=== PATIENT | female | born 1960 | race Hispanic/Latino ===

== ENCOUNTER 2016-05-04 07:53 | Emergency (ER) | payer MEDICAID ==
[2016-05-04 08:03] VITALS: BP 140/77
[2016-05-04] MEDS ORDERED: NORCO 7.5/325 PO ONE (11:07)
--- NOTE | 2016-05-04 11:25 | Emergency Department Report ---
ED Back Pain/Injury HPI - General Chief Complaint: Back Pain/Injury Stated Complaint: BACK PAIN Time Seen by Provider: 05/04/16 10:02 Source: patient Limitations: No Limitations - History of Present Illness MD Complaint: back pain - Related Data Home Medications Medication Instructions Recorded Confirmed Last Taken Butalb/Acetamin/Caff 50-325-40 2 tab PO DAILY PRN 06/24/14 06/24/14 06/24/14 12: 30 [Fioricet] HYDROmorphone [Dilaudid] mg IM Q2W 06/24/14 06/24/14 06/21/14 Morphine mg IM 06/24/14 06/24/14 06/21/14 Haloperidol [Haldol] 5 mg PO DAILY 04/11/15 10/23/15 02/13/16 Benztropine [Cogentin] 2 mg PO BID 02/13/16 02/13/16 02/13/16 Previous Rx's Medication Instructions Recorded Last Taken Type HYDROcodone/ACETAMINOPHEN [[place] 1 each PO Q6HR #10 tablet 06/24/14 Unknown Rx 7.5-325 mg TAB] Amoxicillin/K Clav Tab [Augmentin 1 tab PO BID #14 tab 02/13/16 Unknown Rx 875 mg] Fluticasone [Flonase] 1 spray NS QDAY #1 bottle 02/13/16 Unknown Rx Loratadine 10 mg PO QDAY #30 tablet 02/13/16 Unknown Rx Naproxen [Naprosyn] 500 mg PO BID #30 tablet 02/13/16 Unknown Rx HYDROcodone/APAP 5-325 [[place] 1 each PO Q6HR PRN #12 tablet 03/02/16 Unknown Rx 5/325] traMADol [Ultram 50 MG tab] 50 mg PO Q6HR PRN #10 tablet 03/17/16 Unknown Rx Allergies Allergy/AdvReac Type Severity Reaction Status Date / Time hydroxyzine HCl AdvReac Rash Verified 05/04/16 07:57 [From Vistaril] hydroxyzine pamoate AdvReac Rash Verified 05/04/16 07:57 [From Vistaril] ibuprofen AdvReac Rash Verified 05/04/16 07:57 ketorolac tromethamine AdvReac Rash Verified 05/04/16 07:57 [From Toradol] ED Review of Systems ROS: Stated complaint: BACK PAIN Other details as noted in HPI ED Past Medical Hx - Past Medical History Hx Headaches / Migraines: Yes Hx Psychiatric Treatment: Yes ("HEAR VOICES D/T TUMOR REMOVED", Schizophrenia) Additional medical history: MS ?? "no symptoms --no medications". chronic pain. "nerve damage". SCIATICA - Surgical History Additional Surgical History: brain tumor removed 4 years ago. HYSTERECTOMY. STENT RIGHT KIDNEY. LEFT ARM SURGERY - Social History Smoking Status: Current Every Day Smoker Substance Use Type: Prescribed - Medications Home Medications: Home Medications Medication Instructions Recorded Confirmed Last Taken Type Butalb/Acetamin/Caff 50-325-40 2 tab PO DAILY PRN 06/24/14 06/24/14 06/24/14 12: 30 History [Fioricet] HYDROcodone/ACETAMINOPHEN [[place] 1 each PO Q6HR #10 tablet 06/24/14 Unknown Rx 7.5-325 mg TAB] HYDROmorphone [Dilaudid] mg IM Q2W 06/24/14 06/24/14 06/21/14 History Morphine mg IM 06/24/14 06/24/14 06/21/14 History Haloperidol [Haldol] 5 mg PO DAILY 04/11/15 10/23/15 02/13/16 History Amoxicillin/K Clav Tab [Augmentin 1 tab PO BID #14 tab 02/13/16 Unknown Rx 875 mg] Benztropine [Cogentin] 2 mg PO BID 02/13/16 02/13/16 02/13/16 History Fluticasone [Flonase] 1 spray NS QDAY #1 bottle 02/13/16 Unknown Rx Loratadine 10 mg PO QDAY #30 tablet 02/13/16 Unknown Rx Naproxen [Naprosyn] 500 mg PO BID #30 tablet 02/13/16 Unknown Rx HYDROcodone/APAP 5-325 [[place] 1 each PO Q6HR PRN #12 tablet 03/02/16 Unknown Rx 5/325] traMADol [Ultram 50 MG tab] 50 mg PO Q6HR PRN #10 tablet 03/17/16 Unknown Rx ED Physical Exam - General Limitations: No Limitations ED Course Vital Signs 05/04/16 07:55 Temperature 97.5 F L Pulse Rate 80 Respiratory 16 Rate Blood Pressure 140/77 O2 Sat by Pulse 100 Oximetry Critical care attestation.: If time is entered above; I have spent that time in minutes in the direct care of this critically ill patient, excluding procedure time. ED Disposition Clinical Impression: Chronic back pain Qualifiers: Back pain location: low back pain Back pain laterality: bilateral Sciatica presence: with sciatica Sciatica laterality: sciatica of left side Qualified Code(s): M54.42 - Lumbago with sciatica, left side; G89.29 - Other chronic pain Disposition: DISCHARGED TO HOME OR SELFCARE Is pt being admited?: No Does the pt Need Aspirin: No Condition: Stable Instructions: Sciatica (ED), Lumbar Radiculopathy (ED), Narcotic Abuse (ED), Narcotic Pain Management (ED) Additional Instructions: Patient advised to follow-up with pain management and primary care Referrals: PRIMARY MD OSMANI [Primary Care Provider] - 3-5 Days [facility] [Provider Group] - 3-5 Days RADHA HSU MD [Staff Physician] - 3-5 Days [facility] [Outside] - 3-5 Days HUSSAIN AMES MD [Staff Physician] - 3-5 Days Time of Disposition: 11:08
== END 2016-05-04 11:17 | disposition home or self-care (01) ==
LOC: ED 07:53
DX: M54.42 Lumbago with sciatica, left side (principal); G89.29 Other chronic pain; G43.909 Migraine, unspecified, not intractable, without status migrainosus; F20.9 Schizophrenia, unspecified; F17.200 Nicotine dependence, unspecified, uncomplicated; Z90.710 Acquired absence of both cervix and uterus; Z88.6 Allergy status to analgesic agent; Z88.8 Allergy status to other drugs, medicaments and biological substances
CPT/HCPCS: 99283

== ENCOUNTER 2016-07-17 08:33 | Emergency (ER) | payer MEDICAID ==
[2016-07-17 09:21] VITALS: BP 128/91
[2016-07-17] MEDS ORDERED: NORCO 5/325 PO ONE (09:59)
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
== END 2016-07-17 11:13 | disposition home or self-care (01) ==
LOC: ED 08:33
DX: M25.512 Pain in left shoulder (principal); G43.909 Migraine, unspecified, not intractable, without status migrainosus; F20.9 Schizophrenia, unspecified; F17.200 Nicotine dependence, unspecified, uncomplicated; Z90.710 Acquired absence of both cervix and uterus
CPT/HCPCS: 99283